=== PATIENT | male | born 1975 | race Caucasian/White ===

== ENCOUNTER 2022-08-16 13:47 | Emergency (ER) | payer MEDICAID, SELFPAY ==
[2022-08-16 13:58] VITALS: BP 150/99; PULSE 89; RESP 20; TEMP 37.1; O2SAT 100
--- NOTE | 2022-08-16 15:03 | ED_ITS ---
HPI - Dental/Oral General Date Seen: 08/16/22 Chief complaint: Dental/Oral/Mouth Injury/Pain Stated complaint: Toothache upper left Time Seen by Provider: 08/16/22 14:30 Source: patient and family Mode of arrival: ambulatory Limitations: no limitations History of Present Illness HPI Narrative: Patient is a 47-year-old gentleman who presents here with the tooth pain in his left upper tooth region, he tells me he has had this 1000 times in the past, normally goes to [facility], he is telling me that ibuprofen and Tylenol do not cut through his pain, he is not having fevers or chills, there is no swelling, no facial asymmetry, he notes that there has been no history of trauma, tells me that he can not get it to see dentist as he has been [place] [facility]. He however is not called in and his, is not followed up in the past, tells me he has been in the ER 2-3 times is here because the tooth pain. Teeth map: 1. Almost his entire top and bottom teeth are showing carious changes. Onset (ago): day(s) Duration: constant Severity: severe Relieving factors: nothing Context: history of dental caries Treatment prior to arrival: oral analgesic Related Data Home Medications Medication Instructions Recorded Confirmed omeprazole 40 mg capsule,delayed 40 mg PO DAILY 08/16/22 08/16/22 release Previous Rx's Medication Instructions Recorded amoxicillin 875 mg-potassium 1 tab PO TID #21 tabs 08/16/22 clavulanate 125 mg tablet Allergies Allergy/AdvReac Type Severity Reaction Status Date / Time No Known Drug Allergies Allergy Verified 08/16/22 14:01 Review of Systems Status of ROS: Reports: 6 or more systems reviewed and unremarkable except as noted in History and below [facility] Social History Smoking Status: Current every day smoker What tobacco products do you use: cigarettes Do you use any of these nicotine containing products: None Second hand tobacco smoke exposure: No How often do you have a drink containing alcohol: monthly or less How many standard drinks containing alcohol do you have on a typical day: 1 or 2 How often do you have six or more drinks on one occasion: Never AUDIT-C Alcohol total score: 1 Non-prescribed substance use: denies use Exam Narrative: Exam Narrative: Patient is seen in room 4 he is in no apparent distress he is able him open his mouth normally, the tooth in question is clearly has really limited teeth left, and all carious, is multiple areas of his mouth like this, I suspect this could be from methamphetamine given what I am seeing. No evidence of abscess, there is no of view co mass, no other drainable abscess, his tongue is otherwise normal, there is no lymphadenopathy anterior posterior chains, his neck is supple, full range of motion, Const: Vital Signs, click to edit/add: Vital Signs - 24 hr 08/16/22 13:58 Temperature 98.7 F Pulse Rate [Pulse Oximeter] 89 Respiratory Rate 20 Blood Pressure [Ri ght Upper Arm] 150/99 H Pulse Oximetry 100 Oxygen Delivery Me thod Room Air Course Course Hospital Course: I explained to him, after reviewing the [facility] website, he has had a number small prescriptions for narcotic medications, that I will not be using narcotics, he really needs to see a dentist definitively, the [facility] other local options are available to him, with a sliding scale, I cannot help this given the widespread issue of his teeth, I do will however help him with antibiotics, given a shot of Toradol. He accepted these, although very grudgingly Vital Signs Vital signs: Initial Vital Signs Temperature 98.7 F 08/16/22 13:58 Temperature Source Temporal Artery Scan 08/16/22 13:58 Pulse Rate 89 08/16/22 13:58 Pulse Rhythm 08/16/22 13:58 Respiratory Rate 20 08/16/22 13:58 Blood Pressure 150/99 H 08/16/22 13:58 Blood Pressure Mean 116 08/16/22 13:58 Blood Pressure Position Sitting 08/16/22 13:58 Pulse Oximetry 100 08/16/22 13:58 Oxygen Delivery Method 08/16/22 13:58 Vital Signs Temperature 98.7 F 08/16/22 13:58 Pulse Rate 89 08/16/22 13:58 Respiratory Rate 20 08/16/22 13:58 Blood Pressure 150/99 H 08/16/22 13:58 Pulse Oximetry 100 08/16/22 13:58 Oxygen Delivery Method 08/16/22 13:58 Temperature 98.7 F 08/16/22 13:58 Pulse Rate 89 08/16/22 13:58 Respiratory Rate 20 08/16/22 13:58 Blood Pressure 150/99 H 08/16/22 13:58 Pulse Oximetry 100 08/16/22 13:58 Oxygen Delivery Method 08/16/22 13:58 MDM - Dental/Oral MDM Narrative Medical decision making narrative: Life-threatening differential diagnosis considered include mastoiditis, and retropharyngeal abscess. Other differential diagnosis considered include dental caries, periodontal abscess, periapical abscess, parotitis, tooth avulsion, tooth fracture, gingivitis as well as other etiologies Discharge Plan Discharge Clinical Impression: Toothache Patient Disposition: Home w/ Parent or Adult Condition: Stable Instructions: Toothache (ED) Additional Instructions: Home rest use of antibiotics, follow-up with dentistry, you will need extensive, no evidence of current abscess, recommend Tylenol /ibuprofen, Prescriptions: New amoxicillin-pot clavulanate 875-125 mg tablet 1 tab PO TID Qty: 21 0RF No Action omeprazole 40 mg capsule,delayed release(DR/EC) 40 mg PO DAILY Follow Up/Referrals: Provider,Not a Local [Primary Care Provider] - Stand Alone Forms: [employer] [employer] Info Instructions
[2022-08-16] MEDS: KETOROLAC 30 MG/ML inj IM (15:05)
== END 2022-08-16 15:06 | disposition home or self-care (01) ==
PROVIDERS: Emergency Provider Family Medicine
DX: K02.9 Dental caries, unspecified (principal)
CPT/HCPCS: 96372; 99283; J1885